=== PATIENT | female | born 1990 | race Caucasian/White ===

== ENCOUNTER 2017-04-02 17:07 | Emergency (ER) | payer OTHER ==
[~2017-04-02] VITALS: Ht 162.6 cm; Wt 60.0 kg
[2017-04-02] MEDS ORDERED: MOTRIN800 MG PO (17:24)
[2017-04-02] MEDS ORDERED: FLEXERIL PO (17:24)
[2017-04-02] MEDS ORDERED: ZOFRAN ODT4 MG PO (17:54)
[2017-04-02 19:03] VITALS: BP 126/86
== END 2017-04-02 19:03 | disposition home or self-care (01) | DRG 605 ==
LOC: ED 17:07
DX: S20.219A Contusion of unspecified front wall of thorax, initial encounter (principal); R11.0 Nausea; S06.0X0A Concussion without loss of consciousness, initial encounter; R51 Headache; V49.49XA Driver injured in collision with other motor vehicles in traffic accident, initial encounter; Y92.410 Unspecified street and highway as the place of occurrence of the external cause; W22.11XA Striking against or struck by driver side automobile airbag, initial encounter